=== PATIENT | female | born 1965 | race Caucasian/White ===

== ENCOUNTER 2018-07-26 21:33 | Emergency (ER) | payer MEDICAID ==
[~2018-07-26] VITALS: Ht 165.1 cm; Wt 139.7 kg
[2018-07-26 22:40] LABS: BASOPHIL % 0.9 % (0-2); PLATELET COUNT 221 x10^3mcL (130-400)
[2018-07-26 22:43] LABS: CALCIUM 8.6 mg/dL (8.5-10.1); CARBON DIOXIDE 26.4 mmol/L (21-32); CHLORIDE SERUM 104 mmol/L (98-107); CREATININE SERUM 0.8 mg/dL (0.6-1.0); GFR1 > 60 mL/min; GLUCOSE SERUM 160 mg/dL (74-106); POTASSIUM SERUM 3.7 mmol/L (3.5-5.1); SODIUM SERUM 137 mmol/L (136-145)
[2018-07-26 22:50] LABS: ALKALINE PHOSPHATASE 153 U/L (46-116); ALT/SGPT 49 U/L (14-59); AST/SGOT 30 U/L (15-37); BILIRUBIN TOTAL 0.2 mg/dL (0.20-1.00); TOTAL PROTEIN, SERUM 7.3 g/dL (6.4-8.2)
[2018-07-26 22:51] LABS: ALBUMIN 3.2 g/dL (3.4-5.0)
[2018-07-27 00:19] VITALS: BP 133/77
== END 2018-07-27 00:19 | disposition home or self-care (01) ==
LOC: ED 21:33
PROVIDERS: Emergency Medicine
DX: N39.0 Urinary tract infection, site not specified (principal); E11.40 Type 2 diabetes mellitus with diabetic neuropathy, unspecified; I10 Essential (primary) hypertension; E11.9 Type 2 diabetes mellitus without complications; E78.00 Pure hypercholesterolemia, unspecified
CPT/HCPCS: 82962; J2270; J7030